=== PATIENT | female | born 1945 | race Caucasian/White ===

== ENCOUNTER 2017-06-08 17:38 | Inpatient (IN) ==
--- NOTE | 2017-06-08 21:58 | Internal Med History&Physical ---
Date of Encounter: 06/08/17 Time of Encounter: 21:54 Assessment and Plan (1) Acute hypoxemic respiratory failure Current visit: Yes Status: Acute Patient is still requiring supplemental oxygen to maintain saturations above 90% , secondary to large left sided pneumonia Will support with breathing treatments, cough expectorants, and try to wean off supplemental oxygen as tolerated There was concern for PE as d-dimer was elevated, but CTA did not show any evidence of it (2) Aspiration pneumonia Current visit: No Status: Suspected She did have episode of vomiting while prepping for her colonoscopy, but has no other history of aspiration/dysphagia/pneumonia [place] [facility] did start her on Levaquin/Zosyn which we will continue for atypical/anaerobic coverage Will obtain bedside swallow evaluation prior to starting her diet Qualifiers: Aspiration pneumonia type: unspecified Laterality: left Lung location: lower lobe of lung Qualified Code(s): J69.0 - Pneumonitis due to inhalation of food and vomit (3) Hyperlipidemia Current visit: Yes Status: Chronic Continue home Zocor dose at 40 mg Qualifiers: Qualified Code(s): E78.5 - Hyperlipidemia, unspecified (4) Osteoporosis Current visit: Yes Status: Chronic Continue calcium supplements She also takes Boniva monthly Qualifiers: Qualified Code(s): M81.0 - Age-related osteoporosis without current pathological fracture (5) DVT prophylaxis Current visit: Yes Status: Acute Heparin 5000 units BID Internal Medicine - H&P: HPI Chief complaint: shortness of breath Admitted From: Emergency Dept Plans for Post Hospital Care: Home History of present illness: Ms. Carter is a 72 year old female who was admitted for hypoxemia after a colonoscopy earlier today. Patient states that she had a routine colonoscopy today by Dr. Wayne at [place]. According to her and the operative note, there was no complications during the procedure, however afterwards she was only saturating in the mid 80s on room air. She normally has no oxygen use at home and has no history of cardiopulmonary disease. Chest x-ray revealed left- sided consolidation and a CTA was ordered as her d-dimer was elevated. This did not reveal any pulmonary embolism but confirmed a large left-sided pneumonia involving the upper and lower lobes, and aspiration was suspected. Upon questioning, patient has no history of aspiration or pneumonias, however she did have vomiting last night when she was drinking the prep for the colonoscopy. She also complained of a non-productive cough that has been off and on for the last month and had mild chest discomfort and shortness of breath after the procedure but has since resolved. Patient denies any fevers, chills, nausea, urinary complaints. Past Med Surg Social Fam HX - Past Medical History Medical history: arthritis, hyperlipidemia, osteoporosis Psychiatric history: no psych history - Past Surgical History Surgical History: breast surgery - Social History Smoking Status: Never smoker Alcohol use: none Drug use: none - Family History Mother Living Status: Hx Family Cardiac Disorders: Yes (CHF) Internal Medicine - H&P: Meds Ibandronate Sodium [Boniva] 150 mg PO QMONTH 06/06/17 [History] Simvastatin [Zocor] 40 mg PO HS 06/06/17 [History] Calcium Carbonate [Calcium] 500 mg PO BID 06/08/17 [History] Multivit-Min/Iron/Folic/Lutein [Centrum Silver Women Tablet] 1 each PO DAILY [History] 3 Allergy/AdvReac Type Severity Reaction Status Date / Time No Known Allergies Allergy Verified 06/06/17 13:50 All Systems PM: A 10-system review of systems was performed and is negative for pertinent findings except as documented above in the HPI. - Constitutional Constitutional: no chills, no fever(s), no night sweats - EENT Eyes: no change in vision, no discharge, no pain, no photophobia Ears: no ear discharge, no ear pain, no tinnitus Nose, mouth and throat: no dysphagia, no nasal discharge, no neck pain, no sore throat - Cardiovascular Cardiovascular ROS IM: chest pain (but has since resolved on its own), dyspnea, lightheadedness, no diaphoresis, no palpitations, no syncope - Respiratory Respiratory: cough (non-productive), chest congestion, no dyspnea, no wheezing, no excessive phlegm production - Gastrointestinal Gastrointestinal: no abdominal pain, no diarrhea, no hematemesis, no hematochezia, no melena, no nausea, no vomiting - Genitourinary Genitourinary: no change in urinary stream, no dysuria, no flank pain, no hematuria - Musculoskeletal Musculoskeletal ROS IM: no numbness, no tingling - Integumentary Integumentary IM: no rash, no unusual bruising - Neurological Neurological ROS: no confusion, no convulsions, no focal weakness, no numbness, no tingling, no tremor(s) - Hematologic/Lymphatic Hematologic/Lymphatic: no easy bruising - Constitutional Vitals: Temp Pulse Resp BP Pulse Ox 98.3 F 88 16 106/72 93 06/08/17 20:24 06/08/17 20:24 06/08/17 20:24 06/08/17 20:24 06/08/17 20:24 General appearance: Present: cooperative, pleasant, no acute distress, answers questions appropriately - Head Head exam: Present: atraumatic, normocephalic - Eye Eye exam: Present: PERRL, conjuntiva pink, sclera anicteric - Neck Neck exam general surgery: Present: supple, trachea midline. Absent: lymphadenopathy - Respiratory Respiratory exam: Present: rales. Absent: accessory muscle use, rhonchi, wheezes - Cardiovascular Cardiovascular exam: Present: RRR, +S1, +S2. Absent: diastolic murmur, gallop, rubs - GI/Abdominal GI/Abdominal exam: Present: normal bowel sounds, soft, no peritoneal signs. Absent: distended, tenderness - Extremities Exam Extremities exam: Present: pedal edema (trace pitting), warm, radial pulses palpable and symmetrical. Absent: calf tenderness, cyanotic - Neurological Exam Neurological exam: Present: alert, no focal deficits. Absent: facial droop, speech deficit - Skin Skin exam: Present: dry, intact
[2017-06-08] MEDS ORDERED: Albuterol 2.5 MG/3 ML NEBULIZER IH PRN (22:11)
[2017-06-08] MEDS ORDERED: Acetaminophen 325 MG TABLET PO PRN (22:11)
[2017-06-08] MEDS ORDERED: Naloxone 0.4 MG/ML INJ IVP PRN (22:11)
[2017-06-08] MEDS ORDERED: Ondansetron ODT 4 MG TAB.RAPDIS SL PRN (22:11)
--- NOTE | 2017-06-08 22:15 | Event Note ---
Date of Encounter: 06/08/17 Time of Encounter: 22:14 Patients and examined with medical manager. Agree with assessment and plan
[2017-06-08] MEDS: Piperacillin/Tazobactam 3.375 GM in D5% in Water (Mini-Bag+) 100 ML IVPB SCH (23:16)
[2017-06-09] MEDS: Ipratropium/Albuterol Neb 3 ML IH SCH ×4 (04:04→22:46)
[2017-06-09 05:05] LABS: Basophils % 0.1 %; Hematocrit 45.7 % (35.3-44.9); Hemoglobin 15.4 g/dL (11.5-15.4); Immature Granulocytes % 0.3 % (0-4); Lymphocytes # 1.2 K/mcL (0.6-4.6); Lymphocytes % 5.6 %; Mean Corpuscular HGB Conc 33.7 g/dL (31.6-35.5); Mean Corpuscular Hemoglobin 29.7 pg (28.0-33.3); Mean Corpuscular Volume 88.1 fL (83.0-100.0); Mean Platelet Volume 10.2 fL (9.4-12.4); Monocytes # 0.5 K/mcL (0.0-1.3); Monocytes % 2.5 %; Neutrophils # 19.4 K/mcL (1.6-8.9); Platelet Count 162 K/mcL (140-400); Red Blood Count 5.19 M/mcL (3.82-4.97); Red Cell Distribution Width 14.4 % (11.5-14.5); Segmented Neutrophils % 91.5 %
[2017-06-09] MEDS: *HR* Heparin 5,000 UNIT/ML VIAL SQ SCH ×2 (05:21→18:24)
[2017-06-09 05:23] LABS: Potassium 3.8 mEq/L (3.5-4.5)
[2017-06-09] MEDS: Piperacillin/Tazobactam 3.375 GM in D5% in Water (Mini-Bag+) 100 ML IVPB SCH (08:35)
[2017-06-09] MEDS ORDERED: 0.9 % Sodium Chloride 1,000 ML IVC SCH (11:15)
--- NOTE | 2017-06-09 11:20 | Internal Med Progress Note ---
<Patria Marrero - Last Filed: 06/09/17 11:49> Date of Encounter: 06/09/17 Time of Encounter: 11:16 - Assessment and plan (1) Acute hypoxemic respiratory failure Current Visit: Yes Status: Acute Assessment and plan: Patient was hypoxic after her colonoscopy yesterday. she denies prior history of dysphagia or aspiration. she states that she had two episodes of vomiting while doing her bowel prep. Etiology likely secondary to vomiting. Chest CTA negative for PE, but showed large left lung pneumonia involving both upper and lower lobes suspicious for aspiration. Plan: scheduled breathing treatments expectorants. patient is on vanc and zosyn currently but we will likely switch to unasyn. sputum cultures pending. supportive care. supplemental oxygen as needed. (2) Aspiration pneumonia Current Visit: Yes Status: Acute Assessment and plan: plan as above. Qualifiers: Aspiration pneumonia type: due to vomit Laterality: left Lung location: unspecified part of lung Qualified Code(s): J69.0 - Pneumonitis due to inhalation of food and vomit (3) MERLYN (acute kidney injury) Current Visit: Yes Status: Acute Assessment and plan: likely etiology is pre renal secondary to dehydration and vomiting from doing her bowel prep. Plan: will do gentle hydration with normal saline 75ml/hr total of 1L repeat BMP for tomorrow. (4) Hyperlipidemia Current Visit: Yes Status: Chronic Assessment and plan: continue home simvastatin. Qualifiers: Hyperlipidemia type: unspecified Qualified Code(s): E78.5 - Hyperlipidemia , unspecified (5) Osteoporosis Current Visit: Yes Status: Chronic Assessment and plan: continue with her home medications Qualifiers: Osteoporosis type: unspecified Presence of current pathological fracture: unspecified Qualified Code(s): M81.0 - Age-related osteoporosis without current pathological fracture (6) DVT prophylaxis Current Visit: Yes Status: Acute Assessment and plan: heparin SQ - Subjective Interval history: 72 year old female evaluated at bedside. patient denies nausea, vomiting, diarrhea, fever, chills, chest pain, shortness of breath. patient was laying in bed and getting a breathing treatment. She states that she had about two episodes of vomiting yesterday while she was doing her bowel prep for her colonoscopy. she denies history of COPD, and she denies history of aspiration or swallowing problems. patient denies any further problems today. - Constitutional Vitals: Temp Pulse Resp BP Pulse Ox 98.0 F 81 15 100/63 95 06/09/17 10:57 06/09/17 10:57 06/09/17 10:57 06/09/17 10:57 06/09/17 10:57 General appearance: Present: cooperative, A&O X 2, pleasant, no acute distress, answers questions appropriately - Head Head exam: Present: atraumatic, normocephalic - ENT ENT exam: Present: mucous membranes dry - Neck Neck exam general surgery: Present: supple, trachea midline - Respiratory Additional comments: significant left sided rales, rhonchi and wheezing present. - Cardiovascular Cardiovascular exam: Present: RRR, +S1, +S2 - GI/Abdominal GI/Abdominal exam: Present: normal bowel sounds, soft. Absent: distended, tenderness - Extremities Exam Extremities exam: Absent: cyanotic, pedal edema - Neurological Exam Neurological exam: Present: alert, oriented X3, no focal deficits - Psychiatric Psychiatric exam: Present: normal affect, normal mood - Skin Skin exam: Present: intact Internal Medicine: Result - Labs CBC & Chem 7: 06/09/17 04:33 06/09/17 04:33 Labs: Short CBC 06/09/17 Range/Units 04:33 WBC 21.2 H D (4.3-11.1) K/mcL Hgb 15.4 (11.5-15.4) g/dL Hct 45.7 H (35.3-44.9) % Plt Count 162 (140-400) K/mcL Neutrophils # 19.4 H (1.6-8.9) K/mcL BMP 06/09/17 04:33 Sodium 133 L D Potassium 3.8 Chloride 103 Carbon Dioxide 19 BUN 24 H D Creatinine 1.25 H Glucose 226 H Calcium 9.0 Consult Discharge Plan - Plan Referrals: Lopez Pal, WELDING SETTER [Primary Care Provider] - <Nilson Couch H - Last Filed: 06/09/17 14:28> Date of Encounter: 06/09/17 - Constitutional Vitals: Temp Pulse Resp BP Pulse Ox 97.1 F L 79 14 108/70 94 06/09/17 14:04 06/09/17 14:04 06/09/17 14:04 06/09/17 14:04 06/09/17 14:04 Internal Medicine: Result - Labs CBC & Chem 7: 06/09/17 04:33 06/09/17 04:33 Labs: Short CBC 06/09/17 Range/Units 04:33 WBC 21.2 H D (4.3-11.1) K/mcL Hgb 15.4 (11.5-15.4) g/dL Hct 45.7 H (35.3-44.9) % Plt Count 162 (140-400) K/mcL Neutrophils # 19.4 H (1.6-8.9) K/mcL BMP 06/09/17 04:33 Sodium 133 L D Potassium 3.8 Chloride 103 Carbon Dioxide 19 BUN 24 H D Creatinine 1.25 H Glucose 226 H Calcium 9.0 - Attending Attestation Hypoxic respiratory failure secondary to aspiration pneumonia present upon admission Stop Zosyn and start Unasyn 3 g IV every 6 hours, continue Levaquin I examined this patient and my medical decision-making was reviewed with the Resident Physician. I agree with the documented findings, disposition and treatment plan as described except to the extent set forth below.
[2017-06-09] MEDS ORDERED: Levofloxacin 750 MG/150 ML 750 MG/150 ML BAG IVPB SCH (14:00)
[2017-06-09] MEDS ORDERED: Ampicillin/Sulbactam 3,000 MG in 0.9 % Sodium Chloride Mini Bag 100 ML IVPB SCH (15:00)
--- NOTE | 2017-06-09 18:32 | Electrocardiograph Report ---
[place] [id number] Test Date: 2017-06-08 Pat Name: Analia Carter Department: 115 Room: 3A Gender: F [place] Floor Person: CT : 1945 Requested By: Nilson Couch Order Number: [id number] Reading MD: Wilbur Garber DO Measurements Intervals [place] Rate: 91 P: 15 NM: 141 QRS: -19 QRSD: 87 T: 35 QT: 292 QTc: 341 Interpretive Statements Normal sinus rhythm Nonspecific ST-T changes Electronically Signed On 06-09-2017 18:31:15 EDT by Wiblur Garber DO
[2017-06-09] MEDS: Ampicillin/Sulbactam 3,000 MG in 0.9 % Sodium Chloride Mini Bag 100 ML IVPB SCH (21:03)
[2017-06-10] MEDS: Ipratropium/Albuterol Neb 3 ML IH SCH ×2 (03:50→10:26)
[2017-06-10 04:28] LABS: Basophils % 0.1 %; Hematocrit 39.4 % (35.3-44.9); Immature Granulocytes % 0.2 % (0-4); Immature Platelets 4.6 % (1.1-6.1); Lymphocytes # 1.3 K/mcL (0.6-4.6); Lymphocytes % 8.6 %; Mean Corpuscular HGB Conc 34.3 g/dL (31.6-35.5); Mean Corpuscular Hemoglobin 30.1 pg (28.0-33.3); Mean Corpuscular Volume 87.9 fL (83.0-100.0); Mean Platelet Volume 9.9 fL (9.4-12.4); Monocytes # 0.5 K/mcL (0.0-1.3); Monocytes % 3.2 %; Neutrophils # 13.5 K/mcL (1.6-8.9); Platelet Count 158 K/mcL (140-400); Red Blood Count 4.48 M/mcL (3.82-4.97); Red Cell Distribution Width 14.3 % (11.5-14.5); Segmented Neutrophils % 87.9 %
[2017-06-10 04:31] LABS: Hemoglobin 13.5 g/dL (11.5-15.4)
[2017-06-10 04:42] LABS: BUN/Creatinine Ratio 25 (6-26); Blood Urea Nitrogen 21 mg/dL (7-20); Calcium 9.1 mg/dL (8.6-10.8); Carbon Dioxide 24 mEq/L (19-29); Chloride 102 mEq/L (98-109); Glucose 159 mg/dL (70-99); Osmolality,Calculated 288 (280-300); Potassium 3.5 mEq/L (3.5-4.5); Sodium 136 mEq/L (136-145); eGFR For African Americans > 60 (> 60); eGFR For Non-African Americans > 60 (> 60)
[2017-06-10] MEDS: Ampicillin/Sulbactam 3,000 MG in 0.9 % Sodium Chloride Mini Bag 100 ML IVPB SCH (07:02)
[2017-06-10] MEDS: *HR* Heparin 5,000 UNIT/ML VIAL SQ SCH (07:04)
--- NOTE | 2017-06-10 10:07 | Discharge Summary ---
<Therese Galloway - Last Filed: 06/10/17 11:06> Date of Encounter: 06/10/17 Time of Encounter: 10:05 - Discharge Diagnosis (1) Acute hypoxemic respiratory failure Priority: Primary Status: Acute Comments: Acute hypoxemic respiratory failure secondary to aspiration pneumonia (2) Aspiration pneumonia Priority: Secondary Status: Acute Qualifiers: Aspiration pneumonia type: due to vomit Laterality: left Lung location: unspecified part of lung Qualified Code(s): J69.0 - Pneumonitis due to inhalation of food and vomit (3) MERLYN (acute kidney injury) Priority: Secondary Status: Acute Comments: Resolved (4) Osteoporosis Priority: Secondary Status: Chronic Qualifiers: Osteoporosis type: unspecified Presence of current pathological fracture: unspecified Qualified Code(s): M81.0 - Age-related osteoporosis without current pathological fracture (5) Hyperlipidemia Priority: Secondary Status: Chronic Qualifiers: Hyperlipidemia type: unspecified Qualified Code(s): E78.5 - Hyperlipidemia , unspecified (6) DVT prophylaxis Priority: Secondary Status: Acute - Discharge Medications Prescriptions: Amoxicillin/Clavulanate [Augmentin] 500 mg PO BIDWM #12 tablet Levofloxacin [Levaquin] 750 mg PO DAILY #6 tablet Home Medications: Ibandronate Sodium [Boniva] 150 mg PO QMONTH 06/06/17 [History] Simvastatin [Zocor] 40 mg PO HS 06/06/17 [History] Calcium Carbonate [Calcium] 500 mg PO BID 06/08/17 [History] Multivit-Min/Iron/Folic/Lutein [Centrum Silver Women Tablet] 1 each PO DAILY [History] Amoxicillin/Clavulanate [Augmentin] 500 mg PO BIDWM #12 tablet 06/10/17 [Rx] Levofloxacin [Levaquin] 750 mg PO DAILY #6 tablet 06/10/17 [Rx] Allergies/Adverse Reactions: 3 Allergy/AdvReac Type Severity Reaction Status Date / Time No Known Allergies Allergy Verified 06/09/17 09:37 Procedures/tests Complete & Pending: Procedures Performed prior 72 hours Category Date Time Status ECG 12 lead ECG [ECG] Routine Y 06/08/17 20:48 Completed Date of admission: 06/08/17 22:15 Primary care physician: Lopez Pal CNP Discharging clinician: Nilson Couch - Patient Status Disposition: Home, Self-Care Condition: Good Functional capacity at discharge: independent ambulation Overall status at discharge: patient is progressing back to baseline - Discharge Instructions Follow Up With: Lopez Pal, HAND THERMAL CUTTER [Primary Care Provider] - Additional Instructions: Finishing antibiotics follow up with PCP in a week or 2 return to hospital should you develop fever, chills, worsen shortness of breath , chest pain. - Diet and Activity Activity: resume usual activities as tolerated Diet: advance to your usual diet Hospital course: Ms. Carter is a 72 year old female who was admitted for hypoxemia after a colonoscopy earlier today. Patient states that she had a routine colonoscopy today by Dr. Wayne at [place]. According to her and the operative note, there was no complications during the procedure, however afterwards she was only saturating in the mid 80s on room air. She normally has no oxygen use at home and has no history of cardiopulmonary disease. Chest x-ray revealed left- sided consolidation and a CTA was ordered as her d-dimer was elevated. This did not reveal any pulmonary embolism but confirmed a large left-sided pneumonia involving the upper and lower lobes, and aspiration was suspected. Upon questioning, patient has no history of aspiration or pneumonias, however she did have vomiting last night when she was drinking the prep for the colonoscopy. She also complained of a non-productive cough that has been off and on for the last month and had mild chest discomfort and shortness of breath after the procedure but has since resolved. Patient denies any fevers, chills, nausea, urinary complaints. She was admitted to the hospital and started on vancomycin and Zosyn, which was then switch to unasyn. Chest CTA negative for PE , but showed large left lung pneumonia involving both upper and lower lobes suspicious for aspiration. Sputum cultures were sent out. She has given supplemental oxygen and duonebs as needed. Speech therapy came and evaluated her and stated that she had no difficulties with swallowing. Sputum culture results showed no growth. The patient continued to clinically improved and stated that her breathing was improving. Supplemental oxygen was titrated down. Her nurse walked her down the halls and saw that there was no desaturation of oxygen. Patient denied fever, chills, worsening shortness of breath, chest pain. She stated that she did feel safe to go home. She was instructed to finish her antibiotic and to follow up with her PCP in a week or 2. Patient is alert and oriented x 3 with full capacity. She stated clear understanding of treatment plan and all questions were answered. - Time Spent with Patient Total time spent providing and/or coordinating discharge services: Greater than 30 minutes (40 minutes) - Constitutional Vitals: Temp Pulse Resp BP Pulse Ox 97.7 F 81 16 114/71 97 06/10/17 06:47 06/10/17 06:47 06/10/17 06:47 06/10/17 06:47 06/10/17 06:47 General appearance: Present: cooperative, A&O X 2, pleasant, no acute distress, answers questions appropriately Exam: Gen.: Vitals noted. No acute distress. AAOx3 HEENT: oropharynx clear, Normocephalic, atraumatic Neck: Supple. No adenopathy. Cardiac: RRR, systolic murmur, +S1/S2 Pulmonary: +rales left base, no wheezes, or rhonchi, equal chest expansion Abdomen: soft, nontender, Bowel sounds noted, no guarding Extremities: no BLE edema, nontender calf, no cyanosis or clubbing Neuro: A&Ox3, moves all extremities Psych: Appropriate mood and behavior <Nilson Couch H - Last Filed: 06/10/17 13:31> Date of Encounter: 06/10/17 Procedures/tests Complete & Pending: Procedures Performed prior 72 hours Category Date Time Status ECG 12 lead ECG [ECG] Routine Y 06/08/17 20:48 Completed Date of admission: 06/08/17 22:15 Primary care physician: Lopez Pal CNP Hospital course: Ms. Carter is a 72 year old female - Time Spent with Patient Total time spent providing and/or coordinating discharge services: - Constitutional Vitals: Temp Pulse Resp BP Pulse Ox 98.0 F 66 18 106/67 93 06/10/17 10:24 06/10/17 10:24 06/10/17 10:28 06/10/17 10:24 06/10/17 10:28 - Attending Attestation Acute Hypoxic respiratory failure secondary to aspiration pneumonia present upon admission Continue Augmentin and Levaquin for 6 more days I examined this patient and my medical decision-making was reviewed with the Resident Physician. I agree with the documented findings, disposition and treatment plan as described except to the extent set forth below.
[2017-06-10 10:29] VITALS: BP 106/67
[2017-06-10] MEDS ORDERED: Ampicillin/Sulbactam 3,000 MG in 0.9 % Sodium Chloride Mini Bag 100 ML IVPB SCH (13:00)
== END 2017-06-10 12:55 | disposition home or self-care (01) | DRG 177 ==
LOC: 3ANU → SUATTDRO 22:15
PROVIDERS: ADMIT Internal Medicine; ATTEND Internal Medicine